=== PATIENT | male | born 1990 | race Caucasian/White ===

== ENCOUNTER → 2022-03-22 | Outpatient (CLI) | payer OTHER ==
--- NOTE | 2022-03-22 13:59 | XR ---
EXAMINATION TYPE: XR chest 2V DATE OF EXAM: 03/22/2022 COMPARISON: NONE TECHNIQUE: PA and lateral views submitted. HISTORY: Pain FINDINGS: The lungs are clear and there is no pneumothorax, pleural effusion, or focal pneumonia. Heart size normal. No overt failure. IMPRESSION: 1. No acute process.
--- NOTE | 2022-03-22 14:00 | XR ---
EXAMINATION TYPE: XR thoracic spine complete DATE OF EXAM: 03/22/2022 COMPARISON: NONE HISTORY: Pain TECHNIQUE: 3 views submitted FINDINGS: Alignment is anatomic. There is no compression deformities. Slight curvature spine. There is mild hy pertrophic spurring at multiple levels anteriorly. IMPRESSION: 1. Slight subtle scoliotic curvature with multilevel hypertrophic spurring. Correlate with MRI as cli nically warranted.
== END | disposition home or self-care (01) ==
LOC: RADXRMAIN 13:30
PROVIDERS: ATTEND Family Medicine
DX: M41.34 Thoracogenic scoliosis, thoracic region (principal)
CPT/HCPCS: 71046; 72072

== ENCOUNTER 2022-04-23 15:45 | Emergency (ER) | payer OTHER ==
[2022-04-23 16:04] VITALS: PULSE 105; TEMP 97.4
[2022-04-23] MEDS ORDERED: ORPHENADRINE 30 MG/ML 2 ML VIAL IM STA (17:05)
--- NOTE | 2022-04-23 17:27 | ED ---
General Adult HPI - General Chief complaint: Back Pain/Injury Stated complaint: Back Pain Time Seen by Provider: 04/23/22 16:00 Source: patient, RN notes reviewed, old records reviewed Mode of arrival: ambulatory Limitations: no limitations - History of Present Illness Initial comments: This is a 32-year-old male presents emergency Department with a 2 month history of thoracic back pain. Patient states he's been seen by his primary and was told to get an MRI but his insurance would not pay for. Patient states the pain is on either side of his spine in the lower thoracic back. Patient states palpating it does increase pain and if he lies back flat it doesn't hurt as bad but if he moves in any direction it begins to hurt. Patient denies any chest pain difficulty breathing shortness of breath per patient any fever chills per patient denies any injury or trauma. Patient also states lately been getting a little right lower back pain that radiates down his right leg. Patient denies any numbness or weakness patient denies any urinary retention or urinary incontinence. Patient denies any perineum abnormalities. - Related Data Home Medications Medication Instructions Recorded Confirmed Dextroamphetamine/Amphetamine 20 mg PO BID@0600,1400 04/23/22 04/23/22 [Adderall 20 mg Tablet] HYDROcodone/APAP 10-325MG [[place] 1 tab PO QID 04/23/22 04/23/22 10-325] Previous Rx's Medication Instructions Recorded Orphenadrine [Norflex] 100 mg PO Q12H #20 tab 04/23/22 predniSONE [Deltasone] 40 mg PO DAILY #8 tab 04/23/22 Allergies Allergy/AdvReac Type Severity Reaction Status Date / Time amoxicillin Allergy Anaphylaxis Verified 04/23/22 18:06 Review of Systems ROS Statement: Those systems with pertinent positive or pertinent negative responses have been documented in the HPI. ROS Other: All systems not noted in ROS Statement are negative. Past Medical History Past Medical History: Musculoskeletal Disorder Additional Past Medical History / Comment(s): Right knee pain, had lateral and medial torn miniscus repaired in this knee in 2011. History of Any Multi-Drug Resistant Organisms: None Reported Additional Past Surgical History / Comment(s): Right knee arthroscopy, plastic surgery on his lower lip as a child. Past Anesthesia/Blood Transfusion Reactions: No Reported Reaction Past Psychological History: ADD/ADHD, Anxiety Smoking Status: Never smoker Past Alcohol Use History: Rare Past Drug Use History: Marijuana - Past Family History Father Family Medical History: No Reported History Additional Family Medical History / Comment(s): Father is 54 years of age and is healthy other than being overweight. Mother Family Medical History: No Reported History Additional Family Medical History / Comment(s): Mother is 48 years of age and is healthy other than being overweight. Brother(s) Family Medical History: No Reported History Additional Family Medical History / Comment(s): He has one brother that has no major medical problems. General Exam - General Exam Comments Initial Comments: GENERAL: Patient is well-developed and well-nourished. Patient is nontoxic and well- hydrated and is in moderate distress. ENT: Neck is soft and supple. No significant lymphadenopathy is noted. Oropharynx is clear. Moist mucous membranes. Neck has full range of motion without eliciting any pain. EYES: The sclera were anicteric and conjunctiva were pink and moist. Extraocular movements were intact and pupils were equal round and reactive to light. Ey elids were unremarkable. PULMONARY: Unlabored respirations. Good breath sounds bilaterally. No audible rales rhonchi or wheezing was noted. CARDIOVASCULAR: There is a regular rate and rhythm without any murmurs gallops or rubs. ABDOMEN: Soft and nontender with normal bowel sounds. SKIN: Skin is clear with no lesions or rashes and otherwise unremarkable. NEUROLOGIC: Patient is alert and oriented x3. Cranial nerves II through XII are grossly intact. Motor and sensory are also intact. Normal speech, volume and content. Symmetrical smile. Straight leg test was normal bilaterally. Perineum exam was normal MUSCULOSKELETAL: Normal extremities with adequate strength and full range of motion. Paraspinous muscles bilaterally were tender to palpation in the thoracic region LYMPHATICS: No significant lymphadenopathy is noted PSYCHIATRIC: Normal psychiatric evaluation. N Limitations: no limitations Course Vital Signs 04/23/22 15:57 Temperature 97.4 F L Pulse Rate 105 H Respiratory 18 Rate Blood Pressure 167/107 O2 Sat by Pulse 98 Oximetry Medical Decision Making - Medical Decision Making Thoracic CT shows no acute abnormality. Patient states his appointment tomorrow to follow up with his primary medical care doctor Disposition Clinical Impression: Thoracic back pain, Sciatica Disposition: HOME SELF-CARE Prescriptions: predniSONE [Deltasone] 40 mg PO DAILY #8 tab Orphenadrine [Norflex] 100 mg PO Q12H #20 tab Is patient prescribed a controlled substance at d/c from ED?: No Referrals: Nasir Gomes MD [Primary Care Provider] - 1-2 days Time of Disposition: 18:41
--- NOTE | 2022-04-23 18:24 | CT ---
EXAMINATION TYPE: CT thoracic spine wo con DATE OF EXAM: 04/23/2022 COMPARISON: None HISTORY: back pain CT DLP: 896.7 mGycm Automated exposure control for dose reduction was used. Images obtained from the level of T1-T12 with no contrast. The thoracic vertebra have normal spacing and alignment. Disc spaces are well-maintained. There is no thoracic paraspinal mass. Posterior elements are intact. No evidence of focal bone destruction. No s ign of thoracic spinal stenosis. Facet joints appear intact. IMPRESSION: Negative CT scan of the thoracic spine. No fracture.
[2022-04-23 19:32] VITALS: BP 116/85; RESP 16
== END 2022-04-23 18:30 | disposition home or self-care (01) ==
LOC: EC 15:45
DX: M54.41 Lumbago with sciatica, right side (principal); M54.6 Pain in thoracic spine; Z88.0 Allergy status to penicillin
CPT/HCPCS: 72128; 99283; 96372; J2360

== ENCOUNTER → 2022-12-06 | Outpatient (CLI) | payer OTHER ==
[2022-12-06 22:53] LABS: Basophils # (A) 0.03 X 10*3/uL (0.00-0.10); Basophils % (A) 0.4 %; Eosinophils # (A) 0.11 X 10*3/uL (0.04-0.35); Eosinophils % (A) 1.5 %; HCT 44.3 % (39.6-50.0); HGB 14.9 g/dL (13.0-17.0); Immature Grans, Automated 0.3 %; Lymphocytes # (A) 2.04 X 10*3/uL (0.90-5.00); Lymphocytes % (A) 28.6 %; MCH 31.4 pg (27.0-32.0); MCHC 33.6 g/dL (32.0-37.0); MCV 93.3 fL (80.0-97.0); Mean Platelet Volume 10.5 fL (9.5-12.2); Monocytes # (A) 0.68 X 10*3/uL (0.20-1.00); Monocytes % (A) 9.5 %; NRBC Per 100 WBC 0 /100 WBCS (0.0-0.0); Neutrophils # (A) 4.25 X 10*3/uL (1.80-7.70); Neutrophils % (A) 59.7 %; Platelet Count 255 X 10*3/uL (140-440); RBC 4.75 X 10*6/uL (4.40-5.60); WBC 7.13 X 10*3/uL (4.50-10.00)
[2022-12-06 23:39] LABS: ALT 20 U/L (10-49); AST 17 U/L (14-35); Albumin 4.7 g/dL (3.8-4.9); Albumin/Globulin Ratio 1.81 (1.60-3.17); Alkaline Phosphatase 67 U/L (41-126); BUN/Creat Ratio 23.38 Ratio (12.00-20.00); Blood Urea Nitrogen 18.7 mg/dL (9.0-27.0); Calcium 9.6 mg/dL (8.7-10.3); Carbon Dioxide 28.4 mmol/L (20.0-27.5); Chloride 104 mmol/L (96-109); Globulin 2.6 g/dL (1.6-3.3); Glucose 92 mg/dL (70-110); Potassium 4.1 mmol/L (3.5-5.5); Sodium 141 mmol/L (135-145); Total Protein 7.3 g/dL (6.2-8.2)
[2022-12-06 23:40] LABS: Chol/HDL Ratio 4.56 Ratio; LDL Cholesterol,Calculated 121.5 mg/dL (0.0-131.0)
[2022-12-07 01:37] LABS: HIV 2 AB Non-Reactive (Non-Reactive); HIV AB P24 Non-Reactive (Non-Reactive); HIV P24 AG Non-Reactive (Non-Reactive)
== END | disposition home or self-care (01) ==
LOC: LABWHC1 14:28
PROVIDERS: ATTEND Family Medicine
DX: Z00.00 Encounter for general adult medical examination without abnormal findings (principal); Z11.59 Encounter for screening for other viral diseases; Z11.4 Encounter for screening for human immunodeficiency virus [HIV]; R53.83 Other fatigue
CPT/HCPCS: 36415; 80053; 80061; 84402; 84403; 84443; 85025; 86803; 87390